=== PATIENT | male | born 1995 | race African-American/Black ===

== ENCOUNTER 2022-05-09 18:14 | Emergency (ER) | payer MEDICAID ==
[~2022-05-09] VITALS: Ht 180.3 cm; Wt 78.0 kg
[2022-05-09] MEDS ORDERED: AMOX1TAB16 MT ×2 (21:54→23:41)
[2022-05-09] MEDS ORDERED: IBUP-2029 MT ×2 (21:54→23:41)
[2022-05-09] MEDS ORDERED: T3 PO ×2 (21:54→23:41)
[2022-05-09 22:34] VITALS: BP 122/81
== END 2022-05-09 22:36 | disposition home or self-care (01) ==
LOC: ER 18:37
DX: K08.89 Other specified disorders of teeth and supporting structures (principal)
CPT/HCPCS: 99281